=== PATIENT | male | born 1960 | race Caucasian/White ===

== ENCOUNTER 2016-10-27 16:33 | Inpatient (IN) | payer OTHER ==
[~2016-10-27] VITALS: Ht 172.7 cm; Wt 81.6 kg
[2016-10-27 17:29] LABS: BASOPHIL % 0.2 % (0-2); RED CELL DISTRIBUTION WIDTH 12.8 % (11.5-14.5)
[2016-10-27 17:37] LABS: PLATELET COUNT 420 x10^3mcL (130-400)
[2016-10-27 17:44] LABS: AMPHETAMINE QUAL UR NONE DETECTED (NEG <=1000)
[2016-10-27 18:07] LABS: ALBUMIN 3.5 g/dL (3.4-5.0); ALKALINE PHOSPHATASE 102 U/L (46-116); ALT/SGPT 34 U/L (16-63); AST/SGOT 33 U/L (15-37); BILIRUBIN TOTAL 1.6 mg/dL (0.20-1.00); CARBON DIOXIDE 23.2 mmol/L (21-32); CHLORIDE SERUM 79 mmol/L (98-107); CREATININE SERUM 0.6 mg/dL (0.7-1.3); GFR1 > 60 mL/min; GLUCOSE SERUM 116 mg/dL (74-106); MAGNESIUM 1.5 mg/dL (1.8-2.4); TOTAL PROTEIN, SERUM 6.5 g/dL (6.4-8.2)
[2016-10-27 18:09] LABS: POTASSIUM SERUM 2.9 mmol/L (3.5-5.1); SODIUM SERUM 113 mmol/L (136-145)
[2016-10-27] MEDS ORDERED: LITHIUM CARBON300 MG PO (18:51)
[2016-10-27] MEDS ORDERED: ZOLOFT100 MG PO (18:51)
[2016-10-27] MEDS ORDERED: BENZTROPINE ME0.5 MG PO (18:52)
[2016-10-27] MEDS ORDERED: OLANZAPINE10 MG PO (18:52)
[2016-10-27] MEDS ORDERED: BUPROPION HCL100 M1 PO (18:52)
[2016-10-27 19:28] LABS: microscopic required? NO
[2016-10-27 19:41] LABS: UA SPECIFIC GRAVITY <=1.005 (1.005-1.035); urine erythrocyte NEGATIVE (NEGATIVE)
[2016-10-27 19:54] LABS: PHOSPHOROUS 2.4 mg/dL (2.5-4.9)
[2016-10-27 20:07] LABS: FREE T4 1.72 ng/dL (0.76-1.46); FREE THYROXINE INDEX 3.8 ug/dL (1.4-4.5); T4(THYROXINE) 10.2 ug/dL (4.7-13.3)
[2016-10-27 20:08] LABS: T3 TOTAL 1.13 ng/mL
[2016-10-27 20:55] VITALS: BP 144/88
[2016-10-27 23:58] LABS: CALCIUM 8.4 mg/dL (8.5-10.1); CARBON DIOXIDE 24.7 mmol/L (21-32); CHLORIDE SERUM 88 mmol/L (98-107); CREATININE SERUM 0.6 mg/dL (0.7-1.3); GFR1 > 60 mL/min; GLUCOSE SERUM 90 mg/dL (74-106); MAGNESIUM 2.1 mg/dL (1.8-2.4)
[2016-10-28] LABS: SODIUM SERUM 123 mmol/L (136-145)
[2016-10-28 05:31] VITALS: BP 150/85
[2016-10-28 06:34] LABS: CALCIUM 8.7 mg/dL (8.5-10.1); CARBON DIOXIDE 23.1 mmol/L (21-32); CHLORIDE SERUM 95 mmol/L (98-107); CREATININE SERUM 0.7 mg/dL (0.7-1.3); GFR1 > 60 mL/min; GLUCOSE SERUM 88 mg/dL (74-106); PHOSPHOROUS 2.8 mg/dL (2.5-4.9); SODIUM SERUM 131 mmol/L (136-145)
[2016-10-28 06:42] LABS: BASOPHIL % 0.1 % (0-2); PLATELET COUNT 453 x10^3mcL (130-400)
[2016-10-28 09:35] VITALS: BP 116/70
[2016-10-28 12:20] VITALS: Ht 172.7 cm; Wt 81.6 kg
[2016-10-28 13:14] VITALS: BP 102/58
[2016-10-28 17:11] VITALS: BP 108/71
[2016-10-28 20:58] VITALS: BP 105/63
[2016-10-29 05:52] VITALS: BP 97/63
[2016-10-29 06:10] LABS: BASOPHIL % 0.5 % (0-2); RED CELL DISTRIBUTION WIDTH 13.3 % (11.5-14.5)
[2016-10-29 06:49] LABS: CALCIUM 8.6 mg/dL (8.5-10.1); CARBON DIOXIDE 25.1 mmol/L (21-32); CHLORIDE SERUM 102 mmol/L (98-107); CREATININE SERUM 0.7 mg/dL (0.7-1.3); GFR1 > 60 mL/min; GLUCOSE SERUM 79 mg/dL (74-106); MAGNESIUM 2.3 mg/dL (1.8-2.4); PHOSPHOROUS 2.6 mg/dL (2.5-4.9); PLATELET COUNT 409 x10^3mcL (130-400); POTASSIUM SERUM 3.6 mmol/L (3.5-5.1); SODIUM SERUM 136 mmol/L (136-145)
[2016-10-29 08:55] VITALS: BP 92/60
[2016-10-29 13:05] VITALS: BP 99/62
[2016-10-29 17:12] VITALS: BP 103/70
[2016-10-29 21:32] VITALS: BP 97/57
[2016-10-30 05:46] VITALS: BP 132/61
[2016-10-30 09:35] VITALS: BP 120/70
[2016-10-30 14:09] VITALS: BP 99/61
[2016-10-30 17:22] VITALS: BP 99/54
[2016-10-30 22:09] VITALS: BP 133/91
[2016-10-31 05:51] LABS: BASOPHIL % 0.3 % (0-2); RED CELL DISTRIBUTION WIDTH 13.5 % (11.5-14.5)
[2016-10-31 06:05] LABS: CALCIUM 8.7 mg/dL (8.5-10.1); CARBON DIOXIDE 26.9 mmol/L (21-32); CHLORIDE SERUM 107 mmol/L (98-107); CREATININE SERUM 0.7 mg/dL (0.7-1.3); GFR1 > 60 mL/min; GLUCOSE SERUM 123 mg/dL (74-106); SODIUM SERUM 142 mmol/L (136-145)
[2016-10-31 06:14] VITALS: BP 147/96
[2016-10-31 06:53] LABS: PLATELET COUNT 433 x10^3mcL (130-400)
[2016-10-31 09:24] VITALS: BP 152/78
[2016-10-31 13:32] VITALS: BP 147/86
[2016-10-31 17:04] VITALS: BP 144/74
[2016-10-31 17:40] VITALS: BP 144/74
== END 2016-10-31 19:31 | disposition home or self-care (01) | DRG 640 ==
LOC: ED 16:33 → DU 18:39
PROVIDERS: Emergency Medicine; Family Medicine; ADMIT Family Medicine
DX: E87.1 Hypo-osmolality and hyponatremia (principal); G93.41 Metabolic encephalopathy; R55 Syncope and collapse; E83.39 Other disorders of phosphorus metabolism; E87.6 Hypokalemia; E83.42 Hypomagnesemia; F31.9 Bipolar disorder, unspecified; D64.9 Anemia, unspecified; Z68.27 Body mass index [BMI] 27.0-27.9, adult
CPT/HCPCS: 36600; 80307; 82962; 83880; 84439; 97110-GP; 97116-GP; 97530-GP; C9113; G0480; J2060; J3475; J3480; J3490; J7030; J7040; Q0092